=== PATIENT | male | born 1960 | race Hispanic/Latino ===

== ENCOUNTER 2025-07-02 22:36 | Emergency (ER) | payer SELFPAY | END 2025-07-02 23:30 | disposition home or self-care (01) | LOC: NAV ERS 22:36 | DX: M19.90 Unspecified osteoarthritis, unspecified site (principal); M79.89 Other specified soft tissue disorders; F17.210 Nicotine dependence, cigarettes, uncomplicated | CPT/HCPCS: 96372; 99283; J1885 ==

== ENCOUNTER 2025-10-16 21:18 | Emergency (ER) | payer SELFPAY ==
[2025-10-16] MEDS ORDERED: Ketorolac Tromethamine 30 MG (1 mL) VIAL ONE (21:40)
[2025-10-16 22:14] LABS: Hematocrit 41.8 % (42.0-52.0); Hemoglobin 14.7 g/dL (14.0-18.0); MDiff Complete? YES; Mean Corpuscular Hemoglobin 32.1 pg (27.0-31.0); Mean Corpuscular Volume 91.3 fl (78.0-98.0); Platelet Count 314 10x3/uL (130-400); Red Blood Cell (RBC) Count 4.58 mill/uL (4.70-6.10); White Blood Cell (WBC) Count 14.7 10x3/uL (4.8-10.8)
[2025-10-16 22:18] LABS: Glucose, Urine (Dipstick) Negative (Negative); Leukocyte Negative (Negative); Protein, Urine (Dipstick) Negative (Neg-Trace); Specific Gravity, Urine 1.020 (1.005-1.030)
[2025-10-16 22:19] LABS: Bacteria/HPF None Seen HPF (None Seen); CAUTI Indications for Culture Dysuria,urgency,freq; RBC/HPF 21-50 HPF (0-3); Urine Culture Reflex No No; WBC/HPF None Seen HPF (0-3)
[2025-10-16 22:25] LABS: Acetaminophen Less than 10 mcg/mL (Less than 10); Salicylate Less than 8.0 mg/dL (Less than 8.0)
[2025-10-16 22:26] LABS: Cocaine Metabolite Screen PRELIM POSITIVE (Negative); THC/Cannabinoid Screen Negative (Negative); Tricyclic Screen Negative (Negative)
[2025-10-16 22:40] LABS: ALT (SGPT) 11 U/L (Less than 45); AST (SGOT) 23 U/L (11-34); Albumin 3.9 g/dL (3.1-4.5); Alkaline Phosphatase 91 U/L (40-110); Anion Gap 18 mmol/L (10-20); BUN (Urea Nitrogen) 19 mg/dL (8.4-25.7); Bilirubin, Total 0.2 mg/dL (0.3-1.2); Calc. Creatinine Clearance 0 mL/min (70-130); Calcium 9.6 mg/dL (7.8-10.44); Carbon Dioxide 21 mmol/L (23-31); Chloride 106 mmol/L (98-107); Globulin 3.6 g/dL (2.4-3.5); Glucose 129 mg/dL (80-115); Potassium 4.6 mmol/L (3.5-5.1); Sodium 140 mmol/L (136-145)
== END 2025-10-16 23:35 | disposition home or self-care (01) ==
LOC: NAV ERS 21:18
DX: N13.2 Hydronephrosis with renal and ureteral calculous obstruction (principal); F17.210 Nicotine dependence, cigarettes, uncomplicated
CPT/HCPCS: 74176; 80053; 80306; 80307; 81001; 83605; 85025; 96374; J1885; J7030